=== PATIENT | female | born 1960 | race Caucasian/White ===

== ENCOUNTER 2022-10-17 05:21 | Day surgery (SDC) | payer BC, OTHER ==
[2022-10-17] MEDS ORDERED: Dextrose 5%-0.45% NaCl 1,000 ML IV SCH (06:00)
[2022-10-17] MEDS ORDERED: Midazolam 1 MG/ML 2 ML SDV ONE (06:12)
[2022-10-17] MEDS ORDERED: fentaNYL 100 MCG/2 ML SDV ONE (06:12)
[2022-10-17] MEDS ORDERED: fentaNYL 100 MCG/2 ML SDV IV ONE ×2 (06:35)
[2022-10-17] MEDS ORDERED: Midazolam 1 MG/ML 2 ML SDV IV ONE ×2 (06:36→06:37)
== END 2022-10-17 08:35 | disposition home or self-care (01) ==
LOC: DL.ENDO 05:21
PROVIDERS: ATTEND Internal Medicine Gastroenterology
DX: K29.50 Unspecified chronic gastritis without bleeding (principal); K31.89 Other diseases of stomach and duodenum; K21.9 Gastro-esophageal reflux disease without esophagitis; K22.2 Esophageal obstruction; K44.9 Diaphragmatic hernia without obstruction or gangrene; K31.7 Polyp of stomach and duodenum; I10 Essential (primary) hypertension; E89.0 Postprocedural hypothyroidism; F32.A Depression, unspecified; E78.5 Hyperlipidemia, unspecified; M51.36 Other intervertebral disc degeneration, lumbar region; E66.09 Other obesity due to excess calories; Z90.89 Acquired absence of other organs; G47.33 Obstructive sleep apnea (adult) (pediatric); Z90.49 Acquired absence of other specified parts of digestive tract; Z98.890 Other specified postprocedural states; Z68.41 Body mass index [BMI] 40.0-44.9, adult; Z88.8 Allergy status to other drugs, medicaments and biological substances
CPT/HCPCS: 87077; J2250; J3010; J7042

== ENCOUNTER 2022-10-18 05:21 | Day surgery (SDC) | payer OTHER ==
[~2022-10-18 05:21] MED LIST: Dextrose 5%-0.45% NaCl 1,000 ML IV SCH; Sodium Chloride 0.9% 10 ML Syringe FLUSH PRN; Sodium Chloride 0.9% 10 ML Syringe FLUSH SCH
[2022-10-18] MEDS ORDERED: Dextrose 5%-0.45% NaCl 1,000 ML IV SCH (06:00)
[2022-10-18] MEDS ORDERED: Midazolam 1 MG/ML 2 ML SDV ONE (06:14)
[2022-10-18] MEDS ORDERED: fentaNYL 100 MCG/2 ML SDV ONE (06:14)
[2022-10-18] MEDS ORDERED: fentaNYL 100 MCG/2 ML SDV IV ONE ×3 (06:25→06:34)
[2022-10-18] MEDS ORDERED: Midazolam 1 MG/ML 2 ML SDV IV ONE ×6 (06:27→06:32)
== END 2022-10-18 08:20 | disposition home or self-care (01) ==
LOC: DL.ENDO 05:21
PROVIDERS: ATTEND Internal Medicine Gastroenterology
DX: K63.5 Polyp of colon (principal); K63.89 Other specified diseases of intestine; K64.4 Residual hemorrhoidal skin tags; Z88.6 Allergy status to analgesic agent
CPT/HCPCS: J2250; J3010; J7042